=== PATIENT | male | born 1980 | race Caucasian/White ===

== ENCOUNTER 2017-02-21 11:22 | Emergency (ER) | payer BC ==
[2017-02-21 11:57] VITALS: BP 147/85
--- NOTE | 2017-02-21 12:15 | UC ---
Throat Pain/Nasal Shan HPI - HPI Summary HPI Summary: Uri sx all week maybe a little better today did have a fever (subjective) a few days ago---Girlfriend is also getting a URI - History of Current Complaint Chief Complaint: UCRespiratory Stated Complaint: SORE THROAT EAR PAIN Time Seen by Provider: 02/21/17 11:59 Hx Obtained From: Patient Onset/Duration: Sudden Onset, Lasting Days - 5-6, Still Present Severity: Mild Pain Intensity: 4 Pain Scale Used: 0-10 Numeric Cough: Nonproductive Associated Signs & Symptoms: Positive: Fever - Allergies/Home Medications Allergies/Adverse Reactions: Allergies Allergy/AdvReac Type Severity Reaction Status Date / Time Mixed Ragweed Allergy Itching Verified 02/21/17 11:57 Solidago (Argueta Malick) Allergy Itching Verified 02/21/17 11:57 Home Medications: Home Medications NK [No Home Medications Reported] 02/21/17 [History Confirmed 02/21/17] PMH/Surg Hx/FS Hx/Imm Hx Previously Healthy: Yes - Surgical History Surgical History: None - Family History Known Family History: Positive: Hypertension - Social History Occupation: Employed Full-time Lives: With Family Alcohol Use: Occasionally Substance Use Type: None Smoking Status (MU): Never Smoked Tobacco Review of Systems Constitutional: Fever - subjective Skin: Negative Eyes: Negative ENT: Sore Throat, Ear Ache Respiratory: Cough Cardiovascular: Negative Gastrointestinal: Negative Genitourinary: Negative Motor: Negative Neurovascular: Negative Musculoskeletal: Negative Neurological: Negative Psychological: Negative All Other Systems Reviewed And Are Negative: Yes Physical Exam Triage Information Reviewed: Yes Appearance: Well-Appearing, No Pain Distress, Well-Nourished Vital Signs: Initial Vital Signs Temp 98.4 F 02/21/17 11:53 Pulse 90 02/21/17 11:53 Resp 16 02/21/17 11:53 BP 147/85 02/21/17 11:53 Pulse Ox 98 02/21/17 11:53 Vital Signs Reviewed: Yes Eye Exam: Normal Eyes: Positive: Conjunctiva Clear ENT Exam: Normal ENT: Positive: Normal ENT inspection, Hearing grossly normal, Pharynx normal, TMs normal. Negative: Nasal congestion, Nasal drainage, Tonsillar swelling, Tonsillar exudate, Trismus, Muffled/hoarse voice Dental Exam: Other Dental: Positive: Gross Decay/Caries @ Neck exam: Normal Neck: Positive: Supple, Nontender, No Lymphadenopathy Respiratory Exam: Normal Respiratory: Positive: Chest non-tender, Lungs clear, Normal breath sounds, No respiratory distress, No accessory muscle use Cardiovascular Exam: Normal Cardiovascular: Positive: RRR, No Murmur, Pulses Normal, Brisk Capillary Refill Musculoskeletal Exam: Normal Musculoskeletal: Positive: Strength Intact, ROM Intact, No Edema Neurological Exam: Normal Neurological: Positive: Alert, Muscle Tone Normal Psychological Exam: Normal Skin Exam: Normal Diagnostics - Laboratory Diagnostic Studies Completed/Ordered: RST (-) Rapid Influenza A/B (-) Throat Pain/Nasal Course/Dx - Course Assessment/Plan: TYLENOL, IBUPROFEN, OTC SX RELIVERS, FOLLOW WITH PCP FOR BLOOD PRESSURE RECHECK, FOLLOW WITH DENTIST - Differential Dx/Diagnosis Differential Diagnosis/HQI/PQRI: Influenza, Otitis Media, Pharyngitis, Sinusitis , URI Provider Diagnoses: URI,Hypertension without diagnosis, Dental Caries Discharge - Discharge Plan Condition: Stable Disposition: HOME Patient Education Materials: Decongestant/Expectorant (By mouth), Ibuprofen ( By mouth), Dental Caries (ED), Viral Syndrome (ED), DASH Eating Plan (ED), Hypertension (ED) Referrals: [facility] PHYSICIAN REFERRAL [Outside] - 2 Weeks No Primary Care Phys,NOPCP [Primary Care Provider] - Additional Instructions: See dental list for dental care follow up
== END 2017-02-21 13:19 | disposition home or self-care (01) ==
LOC: UCEAST 11:22
DX: J06.9 Acute upper respiratory infection, unspecified (principal); I10 Essential (primary) hypertension; K02.9 Dental caries, unspecified; Z91.048 Other nonmedicinal substance allergy status
CPT/HCPCS: 87502; 87651; 99211; G0463

== ENCOUNTER 2018-05-03 11:38 | Emergency (ER) | payer BC ==
[2018-05-03 11:45] VITALS: BP 147/97
--- NOTE | 2018-05-03 11:52 | UC ---
Throat Pain/Nasal Shan HPI - HPI Summary HPI Summary: 37 yo male presents with sore throat for the last week. Has been taking ibuprofen and gargling listerine with no relief. No known sick contacts. Denies fever, chills, cough, headache, SOB, chest pain, abdominal pain, n/v, or rash. - History of Current Complaint Chief Complaint: UCGeneralIllness Stated Complaint: SORE THROAT Time Seen by Provider: 05/03/18 11:52 Hx Obtained From: Patient Onset/Duration: Gradual Onset Severity: Moderate Pain Intensity: 6 Pain Scale Used: 0-10 Numeric - Allergies/Home Medications Allergies/Adverse Reactions: Allergies Allergy/AdvReac Type Severity Reaction Status Date / Time ragweed pollen Allergy Itching Verified 05/03/18 11:44 gabriel tristen Allergy Itching Uncoded 05/03/18 11:44 Home Medications: Home Medications Ibuprofen [Advil] 3 tab PO BID PRN 05/03/18 [History Confirmed 05/03/18] PMH/Surg Hx/FS Hx/Imm Hx - Additional Past Medical History Additional PMH: None Previously Healthy: Yes - Surgical History Surgical History: None - Family History Known Family History: Positive: Hypertension - Social History Occupation: Employed Full-time Lives: With Family Alcohol Use: Occasionally Substance Use Type: None Smoking Status (MU): Never Smoked Tobacco - Immunization History Most Recent Tetanus Shot: UNK Review of Systems Constitutional: Negative Skin: Negative Eyes: Negative ENT: Sore Throat Respiratory: Negative Cardiovascular: Negative Gastrointestinal: Negative Neurovascular: Negative Neurological: Negative Psychological: Negative All Other Systems Reviewed And Are Negative: Yes Physical Exam - Summary Physical Exam Summary: GENERAL: NAD. WDWN. No pain distress. SKIN: No rashes, sores, lesions, or open wounds. HEENT: Head: AT/NC Eyes: Conjunctiva clear without inflammation or discharge. Ears: Hearing grossly normal. TMs intact, no bulging, erythema, or edema. Nose: Nasal mucosa pink and moist. NTTP maxillary and frontal sinus. Throat: Posterior oropharynx mild erythema. No tonsillar enlargement. No exudates. Uvula midline. No hoarse voice or muffled voice. NECK: Supple. Nontender. No lymphadenopathy. CHEST: CTAB. No r/r/w. No accessory muscle use. Breathing comfortably and in no distress. CV: RRR. Without m/r/g. Pulses intact. Brisk cap refill. NEURO: Alert. CN II-XII grossly intact. PSYCH: Age appropriate behavior. Triage Information Reviewed: Yes Vital Signs: Initial Vital Signs Temp 98.3 F 05/03/18 11:42 Pulse 80 05/03/18 11:42 Resp 21 05/03/18 11:42 BP 147/97 05/03/18 11:42 Pulse Ox 98 05/03/18 11:42 Throat Pain/Nasal Course/Dx - Course Course Of Treatment: POC strep negative. Advised pt that his symptoms are likely viral, but he wanted to try an antibiotic as it has been a week with no improvement. - Differential Dx/Diagnosis Provider Diagnoses: Pharyngitis Discharge - Sign-Out/Discharge Documenting (check all that apply): Discharge/Admit/Transfer - Discharge Plan Condition: Stable Disposition: HOME Prescriptions: ceFUROXime TAB(*) [Ceftin TAB 250 MG(*)] 250 mg PO BID #14 tab Patient Education Materials: Pharyngitis (ED) Referrals: Farooq Cortez MD [Primary Care Provider] - Additional Instructions: If you develop a fever, shortness of breath, chest pain, new or worsening symptoms - please call your PCP or go to the ED. Your blood pressure was high at todays visit. Please see your primary provider within 4 weeks for recheck and re-evaluation. - Billing Disposition and Condition Condition: STABLE Disposition: Home
== END 2018-05-03 12:17 | disposition home or self-care (01) ==
LOC: UCEAST 11:38
DX: J02.9 Acute pharyngitis, unspecified (principal); Z82.49 Family history of ischemic heart disease and other diseases of the circulatory system
CPT/HCPCS: 87651; 99202; G0463

== ENCOUNTER 2018-05-11 12:50 | Emergency (ER) | payer BC ==
[2018-05-11 13:06] VITALS: BP 137/102
--- NOTE | 2018-05-11 13:53 | ED ---
Respiratory - HPI Summary HPI Summary: 38-year-old male presents with cough for the past 2 weeks. He admits to sinus congestion. admits to postnasal drip. He admits occasional sore throat. He admits to pressure behind ear. Denies any headaches. He states he has a little history of asthma but does not have an inhaler. no Bowel pain. No nausea vomiting. He admits to fatigue. Friends have been sick with bronchitis. No fevers. He was on an antibiotic for the past week for pharyngitis. It has not helped. - History of Current Complaint Chief Complaint: UCGeneralIllness Stated Complaint: SORE THROAT COUGH CHEST CONGESTION Time Seen by Provider: 05/11/18 13:43 Pain Intensity: 4 - Allergy/Home Medications Allergies/Adverse Reactions: Allergies Allergy/AdvReac Type Severity Reaction Status Date / Time ragweed pollen Allergy Itching Verified 05/11/18 13:05 gabriel tristen Allergy Itching Uncoded 05/11/18 13:05 PMH/Surg Hx/FS Hx/Imm Hx Endocrine/Hematology History: Denies: Hx Diabetes, Hx Thyroid Disease Cardiovascular History: Reports: Hx Hypertension - not medicated Respiratory History: Denies: Hx Asthma, Hx Chronic Obstructive Pulmonary Disease (COPD) GI History: Denies: Hx Ulcer - Surgical History Surgery Procedure, Year, and Place: denies Infectious Disease History: No Infectious Disease History: Denies: Hx Hepatitis, Hx Human Immunodeficiency Virus (HIV), Traveled Outside the in Last 30 Days - Family History Known Family History: Positive: Hypertension - Social History Alcohol Use: Occasionally Substance Use Type: Reports: None Smoking Status (MU): Never Smoked Tobacco Review of Systems Negative: Fever Positive: Nasal Discharge Negative: Chest Pain Positive: Cough. Negative: Shortness Of Breath All Other Systems Reviewed And Are Negative: Yes Physical Exam Triage Information Reviewed: Yes Vital Signs On Initial Exam: Initial Vitals Temp Pulse Resp BP Pulse Ox 98.9 F 87 18 137/102 98 05/11/18 13:01 05/11/18 13:01 05/11/18 13:01 05/11/18 13:01 05/11/18 13:01 Vital Signs Reviewed: Yes Appearance: Positive: Well-Appearing Skin: Positive: Warm, Dry Head/Face: Positive: Normal Head/Face Inspection Eyes: Positive: Normal, EOMI, ESCOBAR, Conjunctiva Clear ENT: Positive: Pharynx normal - cobblestoning, Nasal drainage, TMs normal Neck: Positive: Supple, Nontender, No Lymphadenopathy Respiratory/Lung Sounds: Positive: Clear to Auscultation, Breath Sounds Present , Other - neg egophony Cardiovascular: Positive: Normal, RRR Abdomen Description: Positive: Nontender, Soft Bowel Sounds: Positive: Present Musculoskeletal: Positive: Normal Neurological: Positive: Normal Psychiatric: Positive: Normal Diagnostics - Vital Signs Vital Signs Temp Pulse Resp BP Pulse Ox 05/11/18 13:01 98.9 F 87 18 137/102 98 - Laboratory Lab Statement: Any lab studies that have been ordered have been reviewed, and results considered in the medical decision making process. Disposition - Course Course Of Treatment: 38-year-old male presents with cough for the past 2 weeks. He admits to sinus congestion. admits to postnasal drip. He admits occasional sore throat. He admits to pressure behind ear. Denies any headaches. He states he has a little history of asthma but does not have an inhaler. no Bowel pain. No nausea vomiting. He admits to fatigue. Friends have been sick with bronchitis. No fevers. He was on an antibiotic for the past week for pharyngitis. It has not helped. On exam sinus congestion. Pharynx Shows cobblestoning. Lungs clear to auscultation. Negative egophony. Explained likely viral. We'll add on prednisone. Told to start Flonase that has at home. Told to follow with primary for blood pressure elevated at this visit. Patient understands agrees the plan. - Differential Dx - Cardiopulmonary Differential Diagnoses - Cardiopulmonary: Bronchitis, Influenza, Lower Resp Infection - Diagnoses Provider Diagnoses: Bronchitis, Hypertension Discharge - Sign-Out/Discharge Documenting (check all that apply): Discharge/Admit/Transfer - Discharge Plan Condition: Good Disposition: HOME Prescriptions: predniSONE TAB* [Deltasone TAB*] 50 mg PO DAILY #5 tab Patient Education Materials: Acute Bronchitis (ED) Referrals: Farooq Cortez MD [Primary Care Provider] - Additional Instructions: Take steroid once a day for 5 days start flonase take an antihistamine Use saline in the nose Cough can last up to 6 weeks Follow up with primary care physician in 5 days about blood pressure as is elevated at this visit Return to ED if develop any new or worsening symptoms - Billing Disposition and Condition Condition: GOOD Disposition: Home
== END 2018-05-11 14:08 | disposition home or self-care (01) ==
LOC: UCEAST 12:50
DX: J40 Bronchitis, not specified as acute or chronic (principal); I10 Essential (primary) hypertension
CPT/HCPCS: 99212; G0463

== ENCOUNTER 2018-11-16 19:18 | Emergency (ER) | payer BC ==
--- NOTE | 2018-11-16 19:28 | UC ---
Complaint Male HPI - HPI Summary HPI Summary: 38 yo male presents with dysuria for the last 2 weeks. He tells me that about 3- 4 weeks ago he had unprotected sexual intercourse. About 2 weeks ago he developed a pain in his urethra with voiding. He mentions that he had this happened to him a few years ago and he was treated for GC/C and his symptoms resolved, but the test for GC/C was negative - so he is unsure what the cause was. Currently he does have some intermittent penile discharge that he says is milky white in color and is scant. Denies fever, chills, abdominal pain, n/v, hematuria, or testicular pain. - History of Current Complaint Stated Complaint: UTI Time Seen by Provider: 11/16/18 19:28 Hx Obtained From: Patient Onset/Duration: Gradual Onset Severity Initially: Mild Severity Currently: Mild Pain Intensity: 1 Pain Scale Used: 0-10 Numeric Aggravating Factor(s): Voiding - Allergies/Home Medications Allergies/Adverse Reactions: Allergies Allergy/AdvReac Type Severity Reaction Status Date / Time ragweed pollen Allergy Itching Verified 11/16/18 19:29 gabriel tristen Allergy Itching Uncoded 11/16/18 19:29 Home Medications: Home Medications NK [No Home Medications Reported] 11/16/18 [History Confirmed 11/16/18] PMH/Surg Hx/FS Hx/Imm Hx Cardiovascular History: Hypertension - Surgical History Surgical History: None Surgery Procedure, Year, and Place: denies - Family History Known Family History: Positive: Hypertension - Social History Occupation: Employed Full-time Lives: With Family Alcohol Use: Occasionally Substance Use Type: None Smoking Status (MU): Never Smoked Tobacco - Immunization History Most Recent Tetanus Shot: UNK Review of Systems All Other Systems Reviewed And Are Negative: Yes Constitutional: Positive: Negative Skin: Positive: Negative Respiratory: Positive: Negative Cardiovascular: Positive: Negative Gastrointestinal: Positive: Negative Genitourinary: Positive: Dysuria Physical Exam - Summary Physical Exam Summary: GENERAL: NAD. WDWN. No pain distress. SKIN: No rashes, sores, lesions, or open wounds. NECK: Supple. Nontender. No lymphadenopathy. CHEST: CTAB. No r/r/w. No accessory muscle use. Breathing comfortably and in no distress. CV: RRR. Without m/r/g. Pulses intact. Cap refill <2seconds ABDOMEN: Soft. NTTP. No CVA tenderness. Bowel sounds present NEURO: Alert. PSYCH: Age appropriate behavior. Triage Information Reviewed: Yes Vital Signs: Vital Signs: Temp Pulse Resp BP Pulse Ox 98.4 F 78 12 161/111 100 11/16/18 19:27 11/16/18 19:27 11/16/18 19:27 11/16/18 19:27 11/16/18 19:27 Laboratory Tests 11/16/18 19:38 POC Urine Color Yellow POC Urine Clarity Clear POC Urine pH 7.0 POC Ur Specif [place] 1.020 POC Urine Protein Negative POC Ur Glucose (UA) Negative POC Urine Ketones Negative POC Urine Blood Trace-intact A POC Urine Nitrite Negative POC Urine Bilirubin Negative POC Urine Urobilinogen 0.2 POC U Leukocyte Esteras Negative Vital Signs Reviewed: Yes Male Genital Exam: Negative: Epididymal Tenderness, Erythema, Inguinal Tenderness, Lesions, Scrotum Tenderness (R), Scrotum Tenderness (L), Testicular Tenderness (R), Testicular Tenderness (L), Urethral Discharge Complaint Male Course/Dx - Course Course Of Treatment: UA with trace blood. He was given ceftriaxone 250mg and azithromycin 1gm in the clinic to treat for GC/C. A urine culture will be sent as well as testing for GC/C. Advised to f/u with Urology if his symptoms continue. Regarding his elevated BP; pt has a hx of HTN and does not take his medication. He has not been having any headaches, dizziness, vision changes, or chest pain. Strongly encouraged him to take his HTN medication and f/u with his PCP. Pt voiced understanding. - Differential Dx/Diagnosis Provider Diagnosis: Dysuria Discharge - Sign-Out/Discharge Documenting (check all that apply): Patient Departure All imaging exams completed and their final reports reviewed: No Studies - Discharge Plan Condition: Stable Disposition: HOME Patient Education Materials: Dysuria (ED) Referrals: Farooq Cortez MD [Primary Care Provider] - Oliver Tolentino MD [Medical Doctor] - As Soon As Possible Additional Instructions: If you develop a fever, shortness of breath, chest pain, new or worsening symptoms - please call your PCP or go to the ED. Your blood pressure was high at todays visit. Please see your primary provider within 4 weeks for recheck and re-evaluation. Please call Urology at the number below to schedule a follow up appointment if your symptoms do not improve. - Billing Disposition and Condition Condition: STABLE Disposition: Home
[2018-11-16 19:40] VITALS: BP 158/110
[2018-11-16] MEDS: cefTRIAXone VIAL(*) 250 MG VIAL IM ONE (20:02)
[2018-11-16] MEDS: Azithromycin TAB* 250 MG PO ONE (20:02)
[2018-11-16] MEDS: Lidocaine 1%* 5 ML VIAL INJ ONE (20:03)
== END 2018-11-16 20:05 | disposition home or self-care (01) ==
LOC: UCEAST 19:18
DX: R30.0 Dysuria (principal)
CPT/HCPCS: 81003; 87086; 87491; 87591; 96372; 99212; A9270-GY; G0463; J0696

== ENCOUNTER 2018-12-23 15:02 | Emergency (ER) | payer BC ==
--- OUTSIDE RECORDS SUMMARY | 2018-12-23 15:09 | XMS REPORT | Continuity of Care Document ---
:1980 External Reference #:[id number] Author Name [facility] Care Team Providers Name Role Phone Farooq Cortez MD Primary Care Physician Unavailable Payers Type Date Identification Numbers Payment Provider Subscriber Policy Number: [id number] [employer] Otilia Salmeron PayID: [id number] [address] [address] [place] [address] Advance Directives Description No Information Available Problems Date Description Provider Status Onset: 10/22/2017 Essential hypertension Farooq Cortez M.D. Active Onset: 10/22/2017 Morbid obesity Farooq Cortez M.D. Active Onset: 06/10/2018 Obesity Farooq Cortez M.D. Active Family History Date Family Member(s) Problem(s) Comments Father Hypertension Social History Type Date Description Comments Sex Unknown ETOH Use Denies alcohol use Tobacco Use Start: Unknown Patient has never smoked Recreational Drug Use Denies Drug Use Smoking Status Reviewed: 12/13/18 Patient has never smoked Allergies, Adverse Reactions, Alerts Description No Known Drug Allergies Medications Medication Date Status Form Strength Qnty SIG Indications Ordering Provider Losartan 10/22/20 Active Tablets 50mg 30tabs 1 by I10 Odalis Potassium 17 mouth Varn, N.P. every day No Active 10/22/20 Hx Unknown Medications 17 - 10/22/20 17 Immunizations Description No Information Available Vital Signs Date Vital Result Comment 12/13/2018 10:36am Height 69 inches 5'9" Weight 240.00 lb Heart Rate 72 /min BP Systolic 127 mmHg BP Diastolic 84 mmHg Body Temperature 98.5 F O2 % BldC Oximetry 96 % BMI (Body Mass Index) 35.4 kg/m2 06/10/2018 8:15am Height 69 inches 5'9" Weight 230.00 lb Heart Rate 74 /min BP Systolic 120 mmHg BP Diastolic 82 mmHg O2 % BldC Oximetry 98 % BMI (Body Mass Index) 34.0 kg/m2 10/22/2017 3:11pm Height 69 inches 5'9" Weight 246.25 lb Heart Rate 87 /min BP Systolic Sitting 154 mmHg BP Diastolic Sitting 92 mmHg O2 % BldC Oximetry 94 % BMI (Body Mass Index) 36.4 kg/m2 Results Test Date Facility Test Result H/L Range Note Urine Culture And 11/16/20 [facility] Urine Culture SEE RESULT 1, 2 Sensitivities [address] [place] [address] [phone] GC/Chlamydia 11/16/20 [facility] Chlamydia Positive Abnormal Negative Amplified Rna [address] [place] [address] Rna [phone] Neisseria gonorrhoeae (GC) Rna Negative Negative Poc Urinalysis 11/16/2018 [facility] Poc Glucose, Negative Negative [address] [place] [address] [phone] Poc Bilirubin, Urine Negative Negative Poc Ketone, Urine Negative Negative Poc Specific [place], Urine 1.020 N 1.010-1.030 Poc Blood, Urine Trace-intact Abnormal Negative Poc pH, Urine 7.0 N 5-9 Poc Protein, Urine Negative Negative Poc Urobilinogen, Urine 0.2 Negative Poc Nitrite, Urine Negative Negative Poc Leukocytes, Urine Negative Negative Poc Color, Urine Yellow Poc Clarity, Urine Clear 3 Comp Metabolic Panel 06/22/2018 [facility] Sodium 140 mmol/L N 135-[address] [place] [address] [phone] Potassium 3.8 mmol/L N 3.5-5.0 Chloride 104 mmol/L N 101-111 Co2 Carbon Dioxide 28 mmol/L N 22-32 Anion Gap 8 mmol/L N 2-11 Glucose 80 mg/dL N 70-100 Blood Urea Nitrogen 10 mg/dL N 6-24 Creatinine 0.91 mg/dL N 0.67-1.17 BUN/Creatinine Ratio 11.0 N 8-20 Calcium 9.4 mg/dL N 8.6-10.3 Total Protein 6.8 g/dL N 6.4-8.9 Albumin 4.5 g/dL N 3.2-5.2 Globulin 2.3 g/dL N 2-4 Albumin/Globulin Ratio 2.0 N 1-3 Total Bilirubin 1.50 mg/dL High 0.2-1.0 Alkaline Phosphatase 59 U/L N 34-104 Alt 30 U/L N 7-52 Ast 22 U/L N 13-39 Egfr Non- 93.7 >60 Egfr 113.4 >60 4 Lipid Profile 06/22/2018 [facility] Triglycerides 180 mg/dL 5 (Trig/Chol/HDL) [address] [place] [address] [phone] Cholesterol 171 mg/dL 6 HDL Cholesterol 29.6 mg/dL 7 LDL Cholesterol 105 mg/dL 8 Laboratory test 06/22/2018 [facility] TSH (Thyroid 0.99 mcIU/mL N 0.34-5.[address] Stim [place]orm) [place] [address] [phone] Cortisol 5.51 g/dL 9 HIV 1&2 AB Self Referred Nonreactive Nonreactive 10 Laboratory test 05/03/2018 [facility] Rapid Strep Negative Negative [address] [place] [address] [phone] 1 [id number] 2 SEE RESULT BELOW Name: OTILIA SALMERON : [address]: Carlin Diallo MD Acct: [id number] Unit: [id number] AGE: 38 Location: [facility] Re11/16/18 SEX: M Status: DEP ER SPEC: [id number] ZECHARIAH: 11/16/[address] [facility] [address]: Catarino HAYES REQ: [id number] RECD: 11/17/18 STATUS: MATTHEW BOYLE DR: Carlin Cortez MD _ SOURCE: URINE SPDESC: ORDERED: Urine Culture COMMENTS: [id number] Procedure Result Reported Site Urine Culture Final 11/18/18- 1032 ML No Growth (<1,000 CFU/mL) * ML - Main Lab . END OF REPORT DEPARTMENT OF PATHOLOGY, [address] [place] [address] Abdiaziz Miller M.D. Director MOJGAN # [id number] 3 [employer] General Sales Manager: [id number] 4 Because ethnic data is not always readily available, this report includes an eGFR for both -Americans and non- Americans. The National Kidney Disease Education Program (NKDEP) does not endorse the use of the MDRD equation for patients that are not between the ages of 18 and 70, are , have extremes of body size, muscle mass, or nutritional status, or are non- or non-. According to the National Kidney Foundation, irrespective of diagnosis, the stage of the disease is based on the level of kidney function: Stage Description GFR(mL/min/1.73 m(2)) 1 Kidney damage with normal or decreased GFR 90 2 Kidney damage with mild decrease in GFR 60-89 3 Moderate decrease in GFR 30-59 4 Severe decrease in GFR 15-29 5 Kidney failure <15 (or dialysis) 5 Desirable: <150 Borderline High: 150-199 High: 200-499 Very High: >500 6 Desirable: <200 Borderline High: 200-239 High: >239 7 Low: <40 Desirable: 40-60 High: >60 8 Desirable: <100 Near Optimal: 100-129 Borderline High: 130-159 High: 160-189 Very High: >189 9 AM 8.7-22.4 PM <10 10 It is recognized that currently available assays for the detection of antibodies to HIV-1 and/or HIV-2 may not detect all infected individuals. HIV antibodies may be undetectable in some stages of the infection and in some clinical conditions. The performance of this assay has not been established for populations of infants or children. Assayed by Chemiluminescence Microparticle Immunoassay on the Siemens Advia Centaur CP. Values obtained with different methods or kits cannot be used interchangeably.The diagnostic specificity of the ADVIA Centaur 1/O/2 Enhanced assay in the low risk population was 99.90% (6052/6058) with a 95% confidence interval of 99.78 to 99.96%. 11 [employer] General Sales Manager: [id number] Procedures Description No Information Available Encounters Type Date Location Provider Dx Diagnosis Office Visit 06/10/2018 [facility] Farooq Cortez, I10 Essential ( primary) 8:00a Medicine - [place] M.D. hypertension [address] E66.9 Obesity, unspecified Z11.59 Encounter for screening for other viral diseases Office Visit 10/22/2017 3:00p [facility] Farooq Cortez, Z00.01 Encounter for Medicine - M.D. general adult [address] medical exam w abnormal findings I10 Essential (primary) hypertension R53.83 Other fatigue K62.5 Hemorrhage of anus and rectum E66.01 Morbid (severe) obesity due to excess calories Z68.36 Body mass index (BMI) 36.0-36.9, adult Plan of Treatment Future Appointment(s):02/17/2019 1:00 pm - Wilner Gresham NP at [facility]12/13/2018 - Odalis Durbin, N.P.I10 Essential (primary) hypertensionComments:For your high blood pressure: Continue with your current medication. I would like you to monitor your blood pressure at home. If your readings at home are consistently higher than 140/90, please call the office.Follow up:Physical in 3 [id number] Encounter for screening for infections with a predominantlyComments:I have ordered screening for, syphilis, chlamydia, and gonorrhea. The office will contact you with your results.
[2018-12-23 15:20] VITALS: BP 167/97
[2018-12-23 15:34] LABS: Influenza A Molecular POSITIVE (Negative)
--- NOTE | 2018-12-23 16:45 | UC ---
Respiratory Complaint HPI - HPI Summary HPI Summary: Pleasant 38 yo gentleman c/o feeling bad since Wednesday (today is Wednesday), very bad since Wed. + fever. + cough, min productive, + sore throat. no rash. No primary gi issues. + headache. + sick contact + influenza. - History of Current Complaint Chief Complaint: UCRespiratory Stated Complaint: CHILLS FEVER Time Seen by Provider: 12/23/18 15:23 Hx Obtained From: Patient Pain Intensity: 4 - Allergies/Home Medications Allergies/Adverse Reactions: Allergies Allergy/AdvReac Type Severity Reaction Status Date / Time ragweed pollen Allergy Itching Verified 12/23/18 15:20 gabriel tristen Allergy Itching Uncoded 12/23/18 15:20 Home Medications: Home Medications Ibuprofen 800 mg PO Q8HR PRN 12/23/18 [History Confirmed 12/23/18] Losartan TAB* [Cozaar TAB*] 1 tab PO DAILY 12/23/18 [History Confirmed 12/23/18] PMH/Surg Hx/FS Hx/Imm Hx Previously Healthy: Yes - Surgical History Surgical History: None Surgery Procedure, Year, and Place: denies - Family History Known Family History: Positive: Hypertension - Social History Alcohol Use: Occasionally Substance Use Type: None Smoking Status (MU): Never Smoked Tobacco - Immunization History Most Recent Tetanus Shot: UNK Review of Systems All Other Systems Reviewed And Are Negative: Yes Constitutional: Positive: Fever, Fatigue Skin: Positive: Negative Eyes: Positive: Negative ENT: Positive: Other - see hpi Respiratory: Positive: Cough Cardiovascular: Positive: Negative Gastrointestinal: Positive: Negative Genitourinary: Positive: Negative Motor: Positive: Negative Neurovascular: Positive: Negative Musculoskeletal: Positive: Negative Neurological: Positive: Negative Psychological: Positive: Negative Is Patient Immunocompromised?: No Physical Exam Triage Information Reviewed: Yes Appearance: Well-Nourished - sitting up, conversing easily in full sentances. Vital Signs: Initial Vital Signs Temp 99.0 F 12/23/18 15:10 Pulse 75 12/23/18 15:10 Resp 18 12/23/18 15:10 BP 167/97 12/23/18 15:10 Pulse Ox 97 12/23/18 15:10 Vital Signs Reviewed: Yes Eye Exam: Normal ENT: Positive: Pharyngeal erythema, Nasal congestion, TM dull, Uvula midline Neck exam: Normal Neck: Positive: Supple, Nontender Respiratory Exam: Other - BS equal, full + mild exp wheeze Respiratory: Positive: No respiratory distress, No accessory muscle use Cardiovascular Exam: Normal Cardiovascular: Positive: RRR, No Murmur, Pulses Normal, Brisk Capillary Refill Abdominal Exam: Normal Abdomen Description: Positive: Nontender Bowel Sounds: Positive: Present Musculoskeletal Exam: Normal Neurological Exam: Normal Psychological Exam: Normal Skin Exam: Normal UC Diagnostic Evaluation - Laboratory O2 Sat by Pulse Oximetry: 97 Respiratory Course/Dx - Course Course Of Treatment: Reviewed coa / tx plan. Reviewed BP elevation, reports that he missed his medication this morning. Aware of need to f/u pcp office. Request rx albuterol. Questions as posed answered to the best of my ability. RST neg. Influenza A + - Differential Dx/Diagnosis Provider Diagnosis: Influenza A Discharge - Sign-Out/Discharge Documenting (check all that apply): Patient Departure All imaging exams completed and their final reports reviewed: No Studies - Discharge Plan Condition: Stable Disposition: HOME Prescriptions: Albuterol HFA INHALER* [Ventolin HFA Inhaler*] 1 - 2 puff INH Q4H PRN #1 mdi PRN Reason: Wheezing Oseltamivir CAP* [Tamiflu CAP*] 75 mg PO BID #10 cap Patient Education Materials: Influenza (ED) Forms: *Work Release Referrals: Farooq Cortez MD [Primary Care Provider] - - Billing Disposition and Condition Condition: STABLE Disposition: Home
== END 2018-12-23 16:30 | disposition home or self-care (01) ==
LOC: UCEAST 15:02
DX: J10.1 Influenza due to other identified influenza virus with other respiratory manifestations (principal)
CPT/HCPCS: 87651; 99212; G0463